=== PATIENT | male | born 1945 | race Caucasian/White ===

== ENCOUNTER → 2016-08-13 | Day surgery (SDC) | payer MEDICARE ==
[~2016-08-13] VITALS: Ht 182.9 cm; Wt 120.2 kg
[~2016-08-13] MED LIST: ACETAMINOPHEN 325 MG TAB PO PRN; ACETYLCHOLINE OPHTH SOLN 1% 2ML As Ordered ONE; AcetaZOLAMIDE 500 MG ER CAP PO ONE; BALANCED SALT IRRIGATION SOLUTION 500ML BAG (FOR OR EYE MACHINE) As Ordered ONE; CEFUROXIME 1MG/0.1ML INTRACAMERAL INJ As Ordered ONE; CYCLOPENTOLATE 2% OPHTH SOLN OD ONE; D5W/0.2% SODIUM CHLORIDE 250 ML IV ONE; FINA5TAB2 PO; GLIP5TAB15 PO; GLUCTAB PO; HEALON DUET (HEALON 10MG/ML 0.55ML & HEALON ENDOCOAT 30MG/ML 0.85ML) As Ordered ONE; HumaLOG INSULIN (NovoLOG) PER UNIT As Ordered ONE; HumaLOG INSULIN (NovoLOG) PER UNIT SC ONE; KETOROLAC 0.5% OPHTH SOLN OD ONE; LIDOCAINE 1% SDV 5 ML VIAL As Ordered ONE; LIDOCAINE 4% INJ 5 ML AMP OU ONE; LOSA50TA20 PO; MAGN400T5 PO; MIDAZOLAM INJ 2 MG/2 ML VIAL (J2250) As Ordered ONE; MYSO50TA5 PO; OFLOXACIN 0.3 % (OCUFLOX) OPTH SOL 5ML OD ONE; PHENYLEPHRINE 2.5% OPHTH SOL 2ML OD ONE; PLAV75TA38 PO; POVIDONE-IODINE 5% OPHTH PREP SOL 30ML As Ordered ONE; PROPARACAINE 0.5% OPHTH SOL 15ML OD PRN; TRIMETHOBENZAMIDE 300 MG CAP PO PRN; TROPICAMIDE 1% OPHTH SOLN 2 ML OD ONE; VICT18IN SC; fentaNYL 100 MCG/2 ML INJECTION (J3010) As Ordered ONE
[2016-08-13 10:15] VITALS: BP 142/84
--- NOTE | 2016-08-14 11:20 | RO ---
DATE OF PROCEDURE: 08/13/2016 PREPROCEDURE DIAGNOSIS: Age-related nuclear cataract, right eye. POSTPROCEDURE DIAGNOSIS: Age-related nuclear cataract, right eye. PROCEDURE: Phacoemulsification and posterior chamber intraocular lens implantation, right eye. Lens used is a Hoya model 250, 24.5 Diopter. SURGEON: Luz Saul MD SKILLED NURSING CASE MANAGER: ANESTHESIA: Topical with sedation. DESCRIPTION OF PROCEDURE: The patient was prepped and draped in the usual fashion. A lid speculum was placed between the lids. The eye was fixated. A stab incision was made to the anterior chamber, and 1% non-preserved Lidocaine was instilled. Then, viscoelastic was instilled. The eye was re-fixated. A 2.75 mm sapphire keratome was used to make a clear corneal temporal limbal incision. Capsulorrhexis was begun with a 30-gauge bent needle and then carried out in a circular fashion with capsulorrhexis forceps. The lens was hydrodissected, and then the phacoemulsification unit was used to make a groove in the nucleus and two meridians. The nucleus was then cracked into four quadrants. Each quadrant was removed with the phacoemulsification unit. Any remaining cortex was removed with the I A unit. Capsular bag was refilled with viscoelastic. A posterior chamber intraocular lens was placed in the capsular bag without difficulty. Any remaining viscoelastic was removed with the I A unit. The wound was hydrated, and Miochol and cefuroxime were instilled into the anterior chamber. The patient tolerated the procedure well and went to the recovery room in stable condition.
== END | disposition home or self-care (01) ==
LOC: M SDC 07:47
PROVIDERS: ATTEND Ophthalmology
DX: H25.11 Age-related nuclear cataract, right eye (principal); E11.42 Type 2 diabetes mellitus with diabetic polyneuropathy; I10 Essential (primary) hypertension; E88.81 Metabolic syndrome and other insulin resistance; E78.00 Pure hypercholesterolemia, unspecified; R06.83 Snoring; N40.0 Benign prostatic hyperplasia without lower urinary tract symptoms; Z79.899 Other long term (current) drug therapy; Z79.84 Long term (current) use of oral hypoglycemic drugs; Z79.02 Long term (current) use of antithrombotics/antiplatelets
CPT/HCPCS: 66984; J2250; J3010; V2632

== ENCOUNTER → 2016-08-20 | Day surgery (SDC) | payer MEDICARE ==
[~2016-08-20] VITALS: Ht 182.9 cm; Wt 120.2 kg
[~2016-08-20] MED LIST changes: +ACETYLCHOLINE OPHTH SOLN 1% 2ML (MIOCHOL-E) As Ordered ONE; -ACETYLCHOLINE OPHTH SOLN 1% 2ML As Ordered ONE; +BALANCED SALT IRRIGATION SOLUTION 500ML BAG (FOR OR EYE MACHINE) XX ONE; +CYCLOPENTOLATE 2% OPHTH SOLN 2ML BTL OD ONE; -CYCLOPENTOLATE 2% OPHTH SOLN OD ONE; +D5W/0.2% SODIUM CHLORIDE 1,000 ML IV SCH; -D5W/0.2% SODIUM CHLORIDE 250 ML IV ONE; -HumaLOG INSULIN (NovoLOG) PER UNIT As Ordered ONE; -HumaLOG INSULIN (NovoLOG) PER UNIT SC ONE; -KETOROLAC 0.5% OPHTH SOLN OD ONE; +KETOROLAC 0.5% OPHTH SOLN OS ONE; -OFLOXACIN 0.3 % (OCUFLOX) OPTH SOL 5ML OD ONE; +OFLOXACIN 0.3 % (OCUFLOX) OPTH SOL 5ML OS ONE; -PHENYLEPHRINE 2.5% OPHTH SOL 2ML OD ONE; +PHENYLEPHRINE 2.5% OPHTH SOL 2ML OS ONE; -PROPARACAINE 0.5% OPHTH SOL 15ML OD PRN; +PROPARACAINE 0.5% OPHTH SOL 15ML OS PRN; -TROPICAMIDE 1% OPHTH SOLN 2 ML OD ONE; +TROPICAMIDE 1% OPHTH SOLN 2ML OS ONE
--- NOTE | 2016-08-20 08:40 | RO ---
DATE OF PROCEDURE: 08/20/2016 PREPROCEDURE DIAGNOSIS: Age related nuclear cataract left eye. POSTPROCEDURE DIAGNOSIS: Age related nuclear cataract left eye. PROCEDURE: Phacoemulsification and posterior chamber intraocular lens implantation. The lens used was Hoya model 250, 22.0 diopter. SURGEON: Luz Saul MD PANTRY GOODS WORKER: ANESTHESIA: Topical with sedation. DESCRIPTION OF PROCEDURE: The patient was prepped and draped in the usual fashion. A lid speculum was placed between the lids. The eye was fixated. A stab incision was made to the anterior chamber, and 1% non-preserved lidocaine was instilled. Then, viscoelastic was instilled. The eye was re-fixated. A 2.75 mm sapphire keratome was used to make a clear corneal temporal limbal incision. Capsulorrhexis was begun with a 30-gauge bent needle and then carried out in a circular fashion with capsulorrhexis forceps. The lens was hydrodissected, and then the phacoemulsification unit was used to make a groove in the nucleus in two meridians. The nucleus was then cracked into four quadrants. Each quadrant was removed with the phacoemulsification unit. Any remaining cortex was removed with the irrigation and aspiration (I and A) unit. Capsular bag was refilled with viscoelastic. A posterior chamber intraocular lens was placed in the capsular bag without difficulty. Any remaining viscoelastic was removed with the I and A unit. The wound was hydrated, and Miochol and cefuroxime were instilled into the anterior chamber. The patient tolerated the procedure well and went to the recovery room in stable condition.
[2016-08-20 09:00] VITALS: BP 135/70
== END | disposition home or self-care (01) ==
LOC: M SDC 06:24
PROVIDERS: ATTEND Ophthalmology
DX: H25.12 Age-related nuclear cataract, left eye (principal); I10 Essential (primary) hypertension; E11.9 Type 2 diabetes mellitus without complications; E78.00 Pure hypercholesterolemia, unspecified; E88.81 Metabolic syndrome and other insulin resistance; G62.9 Polyneuropathy, unspecified; N40.0 Benign prostatic hyperplasia without lower urinary tract symptoms; R06.83 Snoring; G40.909 Epilepsy, unspecified, not intractable, without status epilepticus; Z88.8 Allergy status to other drugs, medicaments and biological substances; Z79.899 Other long term (current) drug therapy; Z79.02 Long term (current) use of antithrombotics/antiplatelets; Z79.84 Long term (current) use of oral hypoglycemic drugs
CPT/HCPCS: 66984; J2250; J3010; V2632

== ENCOUNTER → 2017-05-05 | Outpatient (REF) | payer MEDICARE ==
[2017-05-05 13:59] LABS: FOLATE 9.1 NG/ML; VITAMIN B12 LEVEL 377 PG/ML
== END ==
LOC: M LAB REF 12:11
DX: R20.2 Paresthesia of skin (principal); R26.89 Other abnormalities of gait and mobility
CPT/HCPCS: 82746

== ENCOUNTER 2018-11-15 07:20 | Day surgery (SDC) | payer MEDICARE ==
[~2018-11-15] VITALS: Ht 182.9 cm; Wt 111.9 kg
[~2018-11-15 07:20] MED LIST changes: -ACETAMINOPHEN 325 MG TAB PO PRN; -ACETYLCHOLINE OPHTH SOLN 1% 2ML (MIOCHOL-E) As Ordered ONE; +ATOR1TAB21 PO; -AcetaZOLAMIDE 500 MG ER CAP PO ONE; -BALANCED SALT IRRIGATION SOLUTION 500ML BAG (FOR OR EYE MACHINE) As Ordered ONE; -BALANCED SALT IRRIGATION SOLUTION 500ML BAG (FOR OR EYE MACHINE) XX ONE; -CEFUROXIME 1MG/0.1ML INTRACAMERAL INJ As Ordered ONE; -CYCLOPENTOLATE 2% OPHTH SOLN 2ML BTL OD ONE; -D5W/0.2% SODIUM CHLORIDE 1,000 ML IV SCH; +FARX1TAB3 PO; -GLIP5TAB15 PO; +GLIP5TAB20 PO; -HEALON DUET (HEALON 10MG/ML 0.55ML & HEALON ENDOCOAT 30MG/ML 0.85ML) As Ordered ONE; -KETOROLAC 0.5% OPHTH SOLN OS ONE; -LIDOCAINE 1% SDV 5 ML VIAL As Ordered ONE; -LIDOCAINE 4% INJ 5 ML AMP OU ONE; +LISI10TA4 PO; -LOSA50TA20 PO; +LOSA50TA88 PO; +MAGN400T PO; +METF500T13 PO; -MIDAZOLAM INJ 2 MG/2 ML VIAL (J2250) As Ordered ONE; +NS 1,000 ML IV ONE; -OFLOXACIN 0.3 % (OCUFLOX) OPTH SOL 5ML OS ONE; -PHENYLEPHRINE 2.5% OPHTH SOL 2ML OS ONE; +PLAV1TAB2 PO; -PLAV75TA38 PO; -POVIDONE-IODINE 5% OPHTH PREP SOL 30ML As Ordered ONE; +PROP20TA72 PO; -PROPARACAINE 0.5% OPHTH SOL 15ML OS PRN; +TOUJ1.2I SC; -TRIMETHOBENZAMIDE 300 MG CAP PO PRN; -TROPICAMIDE 1% OPHTH SOLN 2ML OS ONE; -fentaNYL 100 MCG/2 ML INJECTION (J3010) As Ordered ONE
[2018-11-15] MEDS ORDERED: PROPOFOL 200 MG/20 ML VIAL As Ordered ONE (09:13)
[2018-11-15] MEDS ORDERED: LIDOCAINE 2% INJ 100 MG/5 ML SDV (FOR ANES.) As Ordered ONE (09:13)
--- NOTE | 2018-11-15 09:16 | ROOR ---
Patient Name: Serge Cox Procedure Date: 11/15/2018 8:44 AM Date of : 1945 Age: 73 Room: [facility] Gender: Male Note Status: Finalized Procedure: Total Colonoscopy to Cecum + Cold Snare Polypectomy + Hemoclip Indications: Screening for colorectal malignant neoplasm, Last colonoscopy 10 years ago Providers: Geoffrey Baker MD Referring MD: OLLIE ALFARO JR, MD Requesting Provider: Medicines: Monitored Anesthesia Care Complications: No immediate complications. Procedure: Pre-Anesthesia Assessment: - The heart rate, respiratory rate, oxygen saturations, blood pressure, adequacy of pulmonary ventilation, and response to care were monitored throughout the procedure. The Colonoscope was introduced through the anus and advanced to the cecum, identified by appendiceal orifice and ileocecal valve. The colonoscopy was performed without difficulty. The patient tolerated the procedure well. The quality of the bowel preparation was excellent. Findings: The perianal and digital rectal examinations were normal. Non-bleeding internal hemorrhoids were found during retroflexion. Two sessile polyps were found in the rectum. The polyps were small in size. These polyps were removed with a cold snare. Resection and retrieval were complete. A small polyp was found in the transverse colon. The polyp was sessile. The polyp was removed with a cold snare. Resection and retrieval were complete. Two sessile polyps were found in the ascending colon. The polyps were small in size. These polyps were removed with a cold snare. Resection and retrieval were complete. To prevent bleeding after the polypectomy, one hemostatic clip was successfully placed (MR conditional). There was no bleeding at the end of the procedure. The exam was otherwise without abnormality on direct and retroflexion views. Impression: - Non-bleeding internal hemorrhoids. - Two small polyps in the rectum, removed with a cold snare. Resected and retrieved. - One small polyp in the transverse colon, removed with a cold snare. Resected and retrieved. - Two small polyps in the ascending colon, removed with a cold snare. Resected and retrieved. Clip (MR conditional) was placed. - The examination was otherwise normal on direct and retroflexion views. - The exam was otherwise normal to the cecum. Recommendation: - Patient has a contact number available for emergencies. The signs and symptoms of potential delayed complications were discussed with the patient. Return to normal activities tomorrow. Written discharge instructions were provided to the patient. - High fiber diet. - Discharge patient to home. - Continue present medications. - Await pathology results. - Telephone GI clinic for pathology results in 1 week. - Return to referring physician. - Repeat colonoscopy for surveillance based on pathology results. - The findings and recommendations were discussed with the patient's family. Geoffrey Baker MD Geoffrey Baker MD 11/15/2018 9:16:21 AM Electronically signed by Geoffrey Baker MD Number of Addenda: 0 Note Initiated On: 11/15/2018 8:44 AM Estimated Blood Loss: Estimated blood loss: none.
[2018-11-15 09:39] VITALS: BP 120/78
== END 2018-11-15 09:52 | disposition home or self-care (01) ==
LOC: M OPP 07:20
PROVIDERS: ATTEND Internal Medicine Gastroenterology
DX: Z12.11 Encounter for screening for malignant neoplasm of colon (principal); K64.8 Other hemorrhoids; K62.1 Rectal polyp; D12.2 Benign neoplasm of ascending colon; D12.3 Benign neoplasm of transverse colon; Z79.4 Long term (current) use of insulin; Z79.899 Other long term (current) drug therapy; Z87.891 Personal history of nicotine dependence

== ENCOUNTER 2023-04-23 09:30 | Inpatient (IN) | payer MEDICARE ==
[~2023-04-23] VITALS: Ht 182.9 cm; Wt 95.8 kg
[~2023-04-23 09:30] MED LIST changes: +CLOP75TA99 PO; +LISI10TA22 PO; -LISI10TA4 PO; +LOSA50TA28 PO; -LOSA50TA88 PO; -MAGN400T PO; +MAGN400T33 PO; -NS 1,000 ML IV ONE; -PLAV1TAB2 PO
[2023-04-23] MEDS ORDERED: CYCLOBENZAPRINE 5MG TABLET PO ONE (09:50)
[2023-04-23] MEDS ORDERED: MORPHINE 2 MG/ML 1ML VIAL IV PRN (09:50)
[2023-04-23] MEDS ORDERED: diphenhydrAMINE 50MG/ML VIAL IV STA (10:38)
[2023-04-23] MEDS ORDERED: methylPREDNISolone 125MG 2ML VIAL IV ONE (10:40)
[2023-04-23] MEDS ORDERED: FAMOTIDINE 20MG/2ML VIAL IVP ONE (10:45)
[2023-04-23 10:46] LABS: BASO # 0.1 10^3/uL (0.0-0.2); BASO % 0.4 % (0.0-1.0); EOS % 0.2 % (0.0-3.0); HEMATOCRIT 43.3 % (42.0-52.0); HEMOGLOBIN 13.6 g/dl (13.5-17.5); LYMPH # 2.1 10^3/uL (1.5-5.0); LYMPH % 18.1 % (24.0-44.0); MEAN CORPUSCULAR HEMOGLOBIN 31.3 pg (27.0-33.0); MEAN CORPUSCULAR HGB CONC 31.4 g/dl (32.0-36.5); MEAN CORPUSCULAR VOLUME 99.5 fl (80.0-96.0); MONO # 1.2 10^3/uL (0.0-0.8); MONO % 10.2 % (2.0-8.0); NEUTROPHILS % 68.5 % (36.0-66.0); PLATELET COUNT, AUTOMATED 379 10^3/uL (150-450); RED BLOOD COUNT 4.35 10^6/uL (4.30-6.10); WHITE BLOOD COUNT 11.7 10^3/uL (4.0-10.0)
[2023-04-23 10:55] LABS: INR 1.18; PROTHROMBIN TIME 14.7 SECONDS (12.5-14.5)
[2023-04-23 10:56] LABS: PARTIAL THROMBOPLASTIN TIME 32.9 SECONDS (24.8-34.2)
[2023-04-23 10:57] LABS: ERYTHROCYTE SEDIMENTATION RATE > 130 mm/hr (0-20)
[2023-04-23 11:03] LABS: LIPASE 22 U/L (12-53)
[2023-04-23 11:05] LABS: ALKALINE PHOSPHATASE 87 U/L (46-116); ALT/SGPT < 9 U/L (7.0-40); AST/SGOT < 8 U/L (<34); BILIRUBIN,DIRECT 0.3 MG/DL (<0.4); BILIRUBIN,TOTAL 0.8 MG/DL (0.3-1.2); BLOOD UREA NITROGEN 14 MG/DL (9-23); CALCIUM LEVEL 9.3 MG/DL (8.3-10.6); CARBON DIOXIDE LEVEL 18 MMOL/L (20-31); CHLORIDE LEVEL 104 MMOL/L (98-107); CREATININE FOR GFR 0.68 MG/DL (0.70-1.30); GLOMERULAR FILTRATION RATE > 60.0 (>42); GLUCOSE, FASTING 225 MG/DL (74-106); POTASSIUM SERUM 4.4 MMOL/L (3.5-5.1); SODIUM LEVEL 138 MMOL/L (136-145); TOTAL PROTEIN 7.1 G/DL (5.7-8.2)
[2023-04-23 11:07] LABS: PROLACTIN 10.78 NG/ML (2.1-17.7)
[2023-04-23 11:17] LABS: RSV AMPLIFICATION NEGATIVE (NEGATIVE)
[2023-04-23] MEDS ORDERED: MORPHINE 4 MG/ML 1ML VIAL IV ONE (12:00)
[2023-04-23] MEDS ORDERED: KETOROLAC 30 MG/ML 1ML VIAL IV ONE (12:45)
[2023-04-23] MEDS ORDERED: ACETAMINOPHEN 500 MG TAB PO ONE (12:45)
[2023-04-23] MEDS ORDERED: PROHANCE 279.3MG/ML 5ML VIAL As Ordered ONE (14:03)
[2023-04-23] MEDS ORDERED: PROHANCE 279.3MG/ML 15ML VIAL As Ordered ONE (14:04)
[2023-04-23] MEDS ORDERED: JARD1TAB3 PO (14:48)
[2023-04-23] MEDS ORDERED: PRIM50TA6 PO (14:48)
[2023-04-23] MEDS ORDERED: METF-838 PO (14:48)
[2023-04-23] MEDS ORDERED: TRAM50TA2 PO (14:48)
[2023-04-23] MEDS ORDERED: HOME MED LIST COMPLETE! XX SCH (14:50)
[2023-04-23 15:57] LABS: PROCALCITONIN 0.11 ng/ml
[2023-04-23] MEDS ORDERED: NS 1,000 ML IV ONE (16:25)
[2023-04-23] MEDS ORDERED: GLUCOSE 4GM CHEW TABLET PO PRN (17:50)
[2023-04-23] MEDS ORDERED: GLUCAGON INJ 1MG VIAL SC PRN (17:50)
[2023-04-23] MEDS ORDERED: DEXTROSE 50% 50ML SYRINGE IV PRN (17:50)
[2023-04-23] MEDS: carisoprodoL 350 MG TAB PO SCH (19:55)
[2023-04-23] MEDS: DOCUSATE SODIUM 100MG CAPSULE PO SCH (19:55)
[2023-04-23] MEDS: INSULIN LISPRO (NovoLOG) PER UNIT SC SCH (20:01)
[2023-04-23] MEDS: ACETAMINOPHEN 500 MG TAB PO SCH (22:00)
[2023-04-24 06:28] LABS: BASO % 0.2 % (0.0-1.0); HEMATOCRIT 40.5 % (42.0-52.0); HEMOGLOBIN 12.7 g/dl (13.5-17.5); LYMPH # 1.6 10^3/uL (1.5-5.0); LYMPH % 11.7 % (24.0-44.0); MEAN CORPUSCULAR HEMOGLOBIN 31.8 pg (27.0-33.0); MEAN CORPUSCULAR HGB CONC 31.4 g/dl (32.0-36.5); MEAN CORPUSCULAR VOLUME 101.5 fl (80.0-96.0); MONO # 0.6 10^3/uL (0.0-0.8); MONO % 4.6 % (2.0-8.0); NEUTROPHILS # 10.5 10^3/uL (1.5-8.5); NEUTROPHILS % 79.2 % (36.0-66.0); PLATELET COUNT, AUTOMATED 363 10^3/uL (150-450); RED BLOOD COUNT 3.99 10^6/uL (4.30-6.10); WHITE BLOOD COUNT 13.3 10^3/uL (4.0-10.0)
[2023-04-24 06:57] LABS: BLOOD UREA NITROGEN 28 MG/DL (9-23); CALCIUM LEVEL 9.3 MG/DL (8.3-10.6); CARBON DIOXIDE LEVEL 15 MMOL/L (20-31); CHLORIDE LEVEL 108 MMOL/L (98-107); GLOMERULAR FILTRATION RATE > 60.0 (>42); GLUCOSE, FASTING 222 MG/DL (74-106); POTASSIUM SERUM 4.6 MMOL/L (3.5-5.1); SODIUM LEVEL 142 MMOL/L (136-145)
[2023-04-24] MEDS: INSULIN LISPRO (NovoLOG) PER UNIT SC SCH ×5 (07:30→22:59)
[2023-04-24] MEDS: DOCUSATE SODIUM 100MG CAPSULE PO SCH ×2 (08:10→20:31)
[2023-04-24] MEDS: ACETAMINOPHEN 500 MG TAB PO SCH ×3 (08:15→22:59)
[2023-04-24 09:00] VITALS: BP 146/71; O2SAT 98
[2023-04-24] MEDS ORDERED: LEVEMIR (INSULIN DETEMIR) 1 UNITS/0.01ML SC SCH (09:00)
[2023-04-24 09:30] VITALS: TEMP 96
[2023-04-24] MEDS ORDERED: fentaNYL 100 MCG/2 ML INJECTION As Ordered ONE (12:50)
[2023-04-24] MEDS ORDERED: LIDOCAINE 1% MDV 20ML VIAL As Ordered ONE (13:02)
[2023-04-24 14:30] VITALS: BP_SYST 152; BP_SYST 162; BP_DIAS 122; BP_DIAS 82; TEMP 97.9; O2SAT 98
[2023-04-24] MEDS: LEVEMIR (INSULIN DETEMIR) 1 UNITS/0.01ML SC SCH (14:52)
[2023-04-24] MEDS: carisoprodoL 350 MG TAB PO SCH (20:31)
[2023-04-24] MEDS: KETOROLAC 30 MG/ML 1ML VIAL IV PRN (20:32)
[2023-04-24 21:15] VITALS: BP 130/61; TEMP 97.9; O2SAT 99
[2023-04-25] MEDS: ACETAMINOPHEN 500 MG TAB PO SCH ×3 (06:07→21:59)
[2023-04-25 06:23] LABS: BASO % 0.3 % (0.0-1.0); EOS % 0.3 % (0.0-3.0); HEMATOCRIT 36.6 % (42.0-52.0); HEMOGLOBIN 11.9 g/dl (13.5-17.5); LYMPH # 1.3 10^3/uL (1.5-5.0); LYMPH % 11.1 % (24.0-44.0); MEAN CORPUSCULAR HGB CONC 32.5 g/dl (32.0-36.5); MEAN CORPUSCULAR VOLUME 98.4 fl (80.0-96.0); MONO % 8.6 % (2.0-8.0); NEUTROPHILS # 8.7 10^3/uL (1.5-8.5); NEUTROPHILS % 77.8 % (36.0-66.0); PLATELET COUNT, AUTOMATED 300 10^3/uL (150-450); RED BLOOD COUNT 3.72 10^6/uL (4.30-6.10); WHITE BLOOD COUNT 11.2 10^3/uL (4.0-10.0)
[2023-04-25 06:45] VITALS: BP 135/69; TEMP 97.5; O2SAT 96
[2023-04-25 06:49] LABS: BLOOD UREA NITROGEN 36 MG/DL (9-23); CALCIUM LEVEL 9.3 MG/DL (8.3-10.6); CARBON DIOXIDE LEVEL 24 MMOL/L (20-31); CHLORIDE LEVEL 109 MMOL/L (98-107); CREATININE FOR GFR 0.77 MG/DL (0.70-1.30); GLOMERULAR FILTRATION RATE > 60.0 (>42); GLUCOSE, FASTING 210 MG/DL (74-106); POTASSIUM SERUM 3.8 MMOL/L (3.5-5.1); SODIUM LEVEL 142 MMOL/L (136-145)
[2023-04-25] MEDS: DOCUSATE SODIUM 100MG CAPSULE PO SCH ×2 (08:17→20:38)
[2023-04-25] MEDS: LEVEMIR (INSULIN DETEMIR) 1 UNITS/0.01ML SC SCH ×2 (08:18→23:00)
[2023-04-25] MEDS: INSULIN LISPRO (NovoLOG) PER UNIT SC SCH ×4 (08:18→22:00)
[2023-04-25] MEDS: KETOROLAC 30 MG/ML 1ML VIAL IV PRN ×2 (08:25→17:53)
[2023-04-25 14:00] VITALS: BP 134/69; TEMP 97.7; O2SAT 98
[2023-04-25 20:28] VITALS: BP 156/80; TEMP 97.9; O2SAT 96
[2023-04-25] MEDS: carisoprodoL 350 MG TAB PO SCH (21:59)
[2023-04-26] MEDS: ACETAMINOPHEN 500 MG TAB PO SCH ×4 (06:08→20:40)
[2023-04-26 06:39] LABS: BASO % 0.3 % (0.0-1.0); EOS % 0.2 % (0.0-3.0); HEMATOCRIT 40.6 % (42.0-52.0); HEMOGLOBIN 13.2 g/dl (13.5-17.5); LYMPH # 0.7 10^3/uL (1.5-5.0); LYMPH % 6.9 % (24.0-44.0); MEAN CORPUSCULAR HGB CONC 32.5 g/dl (32.0-36.5); MEAN CORPUSCULAR VOLUME 98.3 fl (80.0-96.0); MONO # 0.8 10^3/uL (0.0-0.8); MONO % 7.8 % (2.0-8.0); NEUTROPHILS # 8.3 10^3/uL (1.5-8.5); PLATELET COUNT, AUTOMATED 263 10^3/uL (150-450); RED BLOOD COUNT 4.13 10^6/uL (4.30-6.10)
[2023-04-26 06:43] VITALS: BP 198/92; TEMP 98.6; O2SAT 93
[2023-04-26 06:54] LABS: BLOOD UREA NITROGEN 28 MG/DL (9-23); CALCIUM LEVEL 9.2 MG/DL (8.3-10.6); CARBON DIOXIDE LEVEL 22 MMOL/L (20-31); CHLORIDE LEVEL 111 MMOL/L (98-107); CREATININE FOR GFR 0.73 MG/DL (0.70-1.30); GLOMERULAR FILTRATION RATE > 60.0 (>42); GLUCOSE, FASTING 235 MG/DL (74-106); SODIUM LEVEL 144 MMOL/L (136-145)
[2023-04-26] MEDS: INSULIN LISPRO (NovoLOG) PER UNIT SC SCH ×4 (07:30→20:38)
[2023-04-26] MEDS: KETOROLAC 30 MG/ML 1ML VIAL IV PRN (08:18)
[2023-04-26] MEDS: LEVEMIR (INSULIN DETEMIR) 1 UNITS/0.01ML SC SCH ×2 (08:49→20:38)
[2023-04-26] MEDS: CYCLOBENZAPRINE 10MG TABLET PO PRN (08:50)
[2023-04-26] MEDS: DOCUSATE SODIUM 100MG CAPSULE PO SCH ×2 (09:00→20:39)
[2023-04-26] MEDS: SENOKOT S TAB PO SCH ×2 (09:00→20:39)
[2023-04-26 09:17] LABS: HEMOGLOBIN A1c 9.1 % (4.0-6.0)
[2023-04-26] MEDS ORDERED: methylPREDNISolone 40MG 1ML VIAL IV ONE (10:00)
[2023-04-26] MEDS ORDERED: MIRALAX *UNIT DOSE* 17GM PACKET PO PRN (10:50)
[2023-04-26 13:26] VITALS: BP 135/77; TEMP 98.1; O2SAT 96
[2023-04-26] MEDS: KETOROLAC 30 MG/ML 1ML VIAL IV SCH ×2 (14:28→20:39)
[2023-04-26 20:23] VITALS: BP 149/73; TEMP 97.5; O2SAT 98
[2023-04-27] MEDS: KETOROLAC 30 MG/ML 1ML VIAL IV SCH ×4 (02:13→21:06)
[2023-04-27 05:47] VITALS: BP 149/74; TEMP 97.5; O2SAT 98
[2023-04-27 06:24] LABS: BASO % 0.2 % (0.0-1.0); EOS % 0.2 % (0.0-3.0); HEMATOCRIT 35.6 % (42.0-52.0); HEMOGLOBIN 11.5 g/dl (13.5-17.5); LYMPH # 1.1 10^3/uL (1.5-5.0); LYMPH % 8.8 % (24.0-44.0); MEAN CORPUSCULAR HEMOGLOBIN 31.9 pg (27.0-33.0); MEAN CORPUSCULAR HGB CONC 32.3 g/dl (32.0-36.5); MEAN CORPUSCULAR VOLUME 98.6 fl (80.0-96.0); MONO % 8.1 % (2.0-8.0); NEUTROPHILS % 80.7 % (36.0-66.0); PLATELET COUNT, AUTOMATED 249 10^3/uL (150-450); RED BLOOD COUNT 3.61 10^6/uL (4.30-6.10); WHITE BLOOD COUNT 12.4 10^3/uL (4.0-10.0)
[2023-04-27] MEDS: ACETAMINOPHEN 500 MG TAB PO SCH ×3 (06:54→21:05)
[2023-04-27 07:00] LABS: BLOOD UREA NITROGEN 30 MG/DL (9-23); CALCIUM LEVEL 9.5 MG/DL (8.3-10.6); CARBON DIOXIDE LEVEL 26 MMOL/L (20-31); CHLORIDE LEVEL 109 MMOL/L (98-107); CREATININE FOR GFR 0.67 MG/DL (0.70-1.30); GLOMERULAR FILTRATION RATE > 60.0 (>42); GLUCOSE, FASTING 186 MG/DL (74-106); POTASSIUM SERUM 3.8 MMOL/L (3.5-5.1); SODIUM LEVEL 143 MMOL/L (136-145)
[2023-04-27] MEDS: CYCLOBENZAPRINE 10MG TABLET PO PRN (09:44)
[2023-04-27] MEDS: SENOKOT S TAB PO SCH ×2 (09:44→21:00)
[2023-04-27] MEDS: LEVEMIR (INSULIN DETEMIR) 1 UNITS/0.01ML SC SCH ×2 (09:45→21:07)
[2023-04-27] MEDS: INSULIN LISPRO (NovoLOG) PER UNIT SC SCH ×6 (09:46→21:07)
[2023-04-27] MEDS ORDERED: methylPREDNISolone 40MG 1ML VIAL IV ONE (12:40)
[2023-04-27] MEDS: DOXYCYCLINE HYCLATE 100MG TABLET PO SCH ×2 (13:16→21:07)
[2023-04-27 14:00] VITALS: BP 140/72; TEMP 97.7; O2SAT 98
[2023-04-27 20:21] VITALS: BP 142/72; TEMP 98; O2SAT 99
[2023-04-27] MEDS: DOCUSATE SODIUM 100MG CAPSULE PO SCH (21:00)
[2023-04-28] MEDS: KETOROLAC 30 MG/ML 1ML VIAL IV SCH ×3 (02:18→13:15)
[2023-04-28] MEDS: ACETAMINOPHEN 500 MG TAB PO SCH ×2 (05:55→13:14)
[2023-04-28 06:23] LABS: BASO % 0.2 % (0.0-1.0); EOS % 0.2 % (0.0-3.0); HEMATOCRIT 37.3 % (42.0-52.0); HEMOGLOBIN 11.8 g/dl (13.5-17.5); LYMPH # 1.3 10^3/uL (1.5-5.0); LYMPH % 8.7 % (24.0-44.0); MEAN CORPUSCULAR HEMOGLOBIN 31.6 pg (27.0-33.0); MEAN CORPUSCULAR HGB CONC 31.6 g/dl (32.0-36.5); MONO # 1.1 10^3/uL (0.0-0.8); MONO % 7.4 % (2.0-8.0); NEUTROPHILS # 12.2 10^3/uL (1.5-8.5); PLATELET COUNT, AUTOMATED 237 10^3/uL (150-450); RED BLOOD COUNT 3.73 10^6/uL (4.30-6.10); WHITE BLOOD COUNT 15.1 10^3/uL (4.0-10.0)
[2023-04-28 06:48] LABS: BLOOD UREA NITROGEN 28 MG/DL (9-23); CALCIUM LEVEL 9.1 MG/DL (8.3-10.6); CARBON DIOXIDE LEVEL 30 MMOL/L (20-31); CHLORIDE LEVEL 107 MMOL/L (98-107); CREATININE FOR GFR 0.72 MG/DL (0.70-1.30); GLOMERULAR FILTRATION RATE > 60.0 (>42); GLUCOSE, FASTING 125 MG/DL (74-106); POTASSIUM SERUM 3.8 MMOL/L (3.5-5.1); SODIUM LEVEL 142 MMOL/L (136-145)
[2023-04-28 06:51] VITALS: BP 187/88; TEMP 98.6; O2SAT 96
[2023-04-28 07:51] VITALS: BP 168/86
[2023-04-28] MEDS: INSULIN LISPRO (NovoLOG) PER UNIT SC SCH ×4 (08:25→12:09)
[2023-04-28] MEDS: SENOKOT S TAB PO SCH (08:26)
[2023-04-28] MEDS: DOXYCYCLINE HYCLATE 100MG TABLET PO SCH (08:26)
[2023-04-28] MEDS: LEVEMIR (INSULIN DETEMIR) 1 UNITS/0.01ML SC SCH (08:26)
[2023-04-28] MEDS ORDERED: ANALGESIC BALM CRM 3OZ TOP SCH (09:00)
[2023-04-28] MEDS ORDERED: NAPR-885 PO (13:17)
[2023-04-28] MEDS ORDERED: TRAM50TA2 PO (13:17)
[2023-04-28] MEDS ORDERED: MEDR4PAK PO (13:17)
[2023-04-28] MEDS ORDERED: CYCL10TA20 PO (13:22)
[2023-04-28] MEDS ORDERED: DOXY100T PO ×2 (13:22→13:29)
[2023-04-28] MEDS ORDERED: PERC5TAB12 PO (13:22)
[2023-04-28] MEDS ORDERED: SENN-52 PO (13:22)
[2023-04-28] MEDS ORDERED: GABA-282 PO (13:25)
[2023-04-28 14:15] VITALS: BP 154/82; TEMP 98.5; O2SAT 97
[2023-04-28] MEDS ORDERED: PERCOCET 5MG/325MG TAB PO SCH (16:00)
[2023-04-28 16:09] LABS: FREE KAPPA LIGHT CHAINS SERUM 36.5 mg/L (3.3-19.4); FREE LAMBDA LIGHT CHAINS SERUM 40.3 mg/L (5.7-26.3); KAPPA/LAMBDA RATIO SERUM 0.91 (0.26-1.65)
[2023-04-28] MEDS ORDERED: NAPROXEN 250 MG TAB PO SCH (21:00)
[2023-04-28] MEDS ORDERED: GABAPENTIN 300 MG CAP PO SCH (21:00)
[2023-04-29] MEDS ORDERED: GABA-282 PO (15:32)
[2023-04-29] MEDS ORDERED: NAPR-885 PO (15:34)
== END 2023-04-28 17:15 | disposition home health service (06) | DRG 465 ==
LOC: M ED 09:30 → M ED INP 17:49 → EEVIPCON 17:49 → M MS5PR 04-24 14:35
PROVIDERS: ADMIT Internal Medicine Nephrology; ATTEND Internal Medicine Nephrology
PROC: 0QB03ZX Excision of Lumbar Vertebra, Percutaneous Approach, Diagnostic (ICD-10-PCS; 2023-04-24)
PROC: 0JBQ0ZZ Excision of Right Foot Subcutaneous Tissue and Fascia, Open Approach (ICD-10-PCS; principal; 2023-04-25)
DX: M51.17 Intervertebral disc disorders with radiculopathy, lumbosacral region (principal); E11.621 Type 2 diabetes mellitus with foot ulcer; L97.519 Non-pressure chronic ulcer of other part of right foot with unspecified severity; I10 Essential (primary) hypertension; E78.5 Hyperlipidemia, unspecified; E11.42 Type 2 diabetes mellitus with diabetic polyneuropathy; M25.512 Pain in left shoulder; M77.31 Calcaneal spur, right foot; M54.2 Cervicalgia; E11.65 Type 2 diabetes mellitus with hyperglycemia; T38.0X5A Adverse effect of glucocorticoids and synthetic analogues, initial encounter; G89.29 Other chronic pain; N40.0 Benign prostatic hyperplasia without lower urinary tract symptoms; B95.62 Methicillin resistant Staphylococcus aureus infection as the cause of diseases classified elsewhere; E66.9 Obesity, unspecified; Z98.41 Cataract extraction status, right eye; Z98.42 Cataract extraction status, left eye; Z86.010 Personal history of colon polyps; Z79.4 Long term (current) use of insulin; Z79.899 Other long term (current) drug therapy; Z88.5 Allergy status to narcotic agent; Z68.28 Body mass index [BMI] 28.0-28.9, adult

== ENCOUNTER 2023-04-29 11:18 | Observation (INO) | payer MEDICARE ==
[~2023-04-29] VITALS: Ht 182.9 cm; Wt 94.9 kg
[~2023-04-29 11:18] MED LIST changes: +CYCL10TA20 PO; +DOXY100T PO; +GABA-282 PO; +JARD1TAB3 PO; +MEDR4PAK PO; +METF-838 PO; +NAPR-885 PO; +PERC5TAB12 PO; +PRIM50TA6 PO; +SENN-52 PO; +TRAM50TA2 PO
[2023-04-29 12:02] LABS: BASO % 0.3 % (0.0-1.0); EOS # 0.2 10^3/uL (0.0-0.5); EOS % 1.2 % (0.0-3.0); HEMATOCRIT 39.2 % (42.0-52.0); HEMOGLOBIN 12.4 g/dl (13.5-17.5); LYMPH # 1.8 10^3/uL (1.5-5.0); LYMPH % 12.8 % (24.0-44.0); MEAN CORPUSCULAR HEMOGLOBIN 31.6 pg (27.0-33.0); MEAN CORPUSCULAR HGB CONC 31.6 g/dl (32.0-36.5); MEAN CORPUSCULAR VOLUME 99.7 fl (80.0-96.0); MONO # 1.4 10^3/uL (0.0-0.8); MONO % 10.2 % (2.0-8.0); NEUTROPHILS # 9.9 10^3/uL (1.5-8.5); NEUTROPHILS % 71.8 % (36.0-66.0); PLATELET COUNT, AUTOMATED 194 10^3/uL (150-450); RED BLOOD COUNT 3.93 10^6/uL (4.30-6.10); WHITE BLOOD COUNT 13.8 10^3/uL (4.0-10.0)
[2023-04-29 12:16] LABS: INR 1.14; PROTHROMBIN TIME 14.3 SECONDS (12.5-14.5)
[2023-04-29 12:33] LABS: ALBUMIN 2.1 G/DL (3.2-5.2); ALKALINE PHOSPHATASE 71 U/L (46-116); ALT/SGPT < 9 U/L (7.0-40); AST/SGOT 16 U/L (<34); BILIRUBIN,DIRECT 0.2 MG/DL (<0.4); BILIRUBIN,TOTAL 0.6 MG/DL (0.3-1.2); BLOOD UREA NITROGEN 19 MG/DL (9-23); CARBON DIOXIDE LEVEL 28 MMOL/L (20-31); CHLORIDE LEVEL 105 MMOL/L (98-107); CK-MB VALUE MASS < 1.0 NG/ML (<3.6); CREATININE FOR GFR 0.64 MG/DL (0.70-1.30); GLOMERULAR FILTRATION RATE > 60.0 (>42); GLUCOSE, FASTING 146 MG/DL (74-106); POTASSIUM SERUM 3.7 MMOL/L (3.5-5.1); SODIUM LEVEL 135 MMOL/L (136-145); TOTAL PROTEIN 6.2 G/DL (5.7-8.2)
[2023-04-29 12:35] LABS: THYROID STIMULATING HORMONE 2.395 uIU/ML (0.55-4.78)
[2023-04-29 12:36] LABS: CPK CREATINE PHOSPHOKINASE 35 U/L (46-171); MB/CK RELATIVE INDEX 2.85 (< OR =4)
[2023-04-29 12:42] LABS: RSV AMPLIFICATION NEGATIVE (NEGATIVE)
[2023-04-29] MEDS ORDERED: NORCO, ANEXSIA 5/325MG TABLET (HYDROcodone/ACETAMINOPHEN) PO ONE (13:30)
[2023-04-29] MEDS ORDERED: MED REC IN PROGRESS XX SCH (15:00)
[2023-04-29 15:25] LABS: ERYTHROCYTE SEDIMENTATION RATE 95 mm/hr (0-20); RHEUMATOID FACTOR QUANT < 3.5 IU/ML (<14)
[2023-04-29] MEDS ORDERED: GABA-282 PO (15:32)
[2023-04-29] MEDS ORDERED: NAPR-885 PO (15:34)
[2023-04-29] MEDS ORDERED: HOME MED LIST COMPLETE! XX SCH (15:40)
[2023-04-29] MEDS ORDERED: CYCLOBENZAPRINE 10MG TABLET PO PRN (16:00)
[2023-04-29 16:15] VITALS: BP 138/80; TEMP 98.8; O2SAT 98
[2023-04-29] MEDS ORDERED: GLUCOSE 4GM CHEW TABLET PO PRN (16:55)
[2023-04-29] MEDS ORDERED: GLUCAGON INJ 1MG VIAL SC PRN (16:55)
[2023-04-29] MEDS ORDERED: DEXTROSE 50% 50ML SYRINGE IV PRN (16:55)
[2023-04-29] MEDS: INSULIN LISPRO (NovoLOG) PER UNIT SC SCH (17:30)
[2023-04-29] MEDS: PERCOCET 5MG/325MG TAB PO PRN ×2 (17:42→21:58)
[2023-04-29 20:27] VITALS: TEMP 97.9; O2SAT 96
[2023-04-29 20:52] VITALS: BP 179/99
[2023-04-29] MEDS ORDERED: LEVEMIR (INSULIN DETEMIR) 1 UNITS/0.01ML SC SCH (21:00)
[2023-04-29] MEDS ORDERED: INSULIN LISPRO (NovoLOG) PER UNIT SC SCH (21:00)
[2023-04-29] MEDS ORDERED: GABAPENTIN 300 MG CAP PO SCH (21:00)
[2023-04-29] MEDS ORDERED: PRIMIDONE 50MG TAB PO SCH (21:00)
[2023-04-29] MEDS: DOXYCYCLINE HYCLATE 100MG TABLET PO SCH (21:57)
[2023-04-29] MEDS: SENOKOT S TAB PO SCH (21:57)
[2023-04-30 00:50] VITALS: BP 170/93
[2023-04-30 01:33] VITALS: BP 148/70
[2023-04-30 05:40] VITALS: BP 158/88; TEMP 97.9; O2SAT 94
[2023-04-30 05:45] LABS: HEMATOCRIT 38.3 % (42.0-52.0); MEAN CORPUSCULAR HEMOGLOBIN 31.1 pg (27.0-33.0); MEAN CORPUSCULAR HGB CONC 31.3 g/dl (32.0-36.5); MEAN CORPUSCULAR VOLUME 99.2 fl (80.0-96.0); PLATELET COUNT, AUTOMATED 186 10^3/uL (150-450); RED BLOOD COUNT 3.86 10^6/uL (4.30-6.10); WHITE BLOOD COUNT 13.9 10^3/uL (4.0-10.0)
[2023-04-30 06:08] LABS: BLOOD UREA NITROGEN 16 MG/DL (9-23); CARBON DIOXIDE LEVEL 26 MMOL/L (20-31); CHLORIDE LEVEL 105 MMOL/L (98-107); CREATININE FOR GFR 0.56 MG/DL (0.70-1.30); GLOMERULAR FILTRATION RATE > 60.0 (>42); GLUCOSE, FASTING 131 MG/DL (74-106); MAGNESIUM LEVEL 1.6 MG/DL (1.8-2.4); PHOSPHORUS LEVEL 3.7 MG/DL (2.4-5.1); POTASSIUM SERUM 4.1 MMOL/L (3.5-5.1); SODIUM LEVEL 139 MMOL/L (136-145)
[2023-04-30] MEDS: INSULIN LISPRO (NovoLOG) PER UNIT SC SCH ×2 (08:32→12:00)
[2023-04-30] MEDS: SENOKOT S TAB PO SCH (08:32)
[2023-04-30] MEDS: DOXYCYCLINE HYCLATE 100MG TABLET PO SCH (08:32)
[2023-04-30] MEDS ORDERED: MAGNESIUM OXIDE 400MG TAB (MAG-OX) PO SCH (09:00)
[2023-04-30] MEDS ORDERED: ENOXAPARIN 40MG/0.4ML SYRINGE (J1650 PER 10MG) SC SCH (09:00)
[2023-04-30] MEDS ORDERED: VANCOMYCIN HCL 1,000 MG, VIAL MATE ADAPTER 1 EACH in D5W 250 ML IV SCH (10:40)
[2023-04-30] MEDS ORDERED: VANCOMYCIN HCL 1,000 MG, VIAL MATE ADAPTER 1 EACH in D5W 250 ML IV ONE ×2 (11:00→12:00)
[2023-04-30] MEDS ORDERED: ISOVUE-370 76% 100ML VIAL As Ordered ONE (12:35)
[2023-04-30] MEDS ORDERED: cefTRIAXone SOD 2 GM in D5W MINI-BAG PLUS 50 ML IV SCH (13:00)
[2023-04-30 14:00] VITALS: BP 156/90; TEMP 98.1; O2SAT 95
[2023-04-30] MEDS ORDERED: VANCOMYCIN HCL 750 MG, VIAL MATE ADAPTER 1 EACH in D5W 250 ML IV SCH (20:00)
[2023-04-30] MEDS ORDERED: VANCOMYCIN HCL 500 MG in D5W MINI-BAG PLUS 100 ML IV SCH (21:00)
[2023-05-01 12:08] LABS: ANTINUCLEAR ANTIBODIES DIRECT Negative (Negative)
== END 2023-04-30 16:47 | disposition short-term general hospital (02) ==
LOC: EDBD 11:18 → M ED 11:18 → CANBEDREQ 13:53 → M ED INP 15:06 → M MSPAV 16:20
PROVIDERS: ADMIT Internal Medicine; ATTEND Internal Medicine
DX: M51.87 Other intervertebral disc disorders, lumbosacral region (principal); M50.21 Other cervical disc displacement, high cervical region; G89.29 Other chronic pain; R53.1 Weakness; R41.82 Altered mental status, unspecified; L97.519 Non-pressure chronic ulcer of other part of right foot with unspecified severity; B95.62 Methicillin resistant Staphylococcus aureus infection as the cause of diseases classified elsewhere; M77.31 Calcaneal spur, right foot; D72.829 Elevated white blood cell count, unspecified; E11.42 Type 2 diabetes mellitus with diabetic polyneuropathy; E66.9 Obesity, unspecified; Z68.28 Body mass index [BMI] 28.0-28.9, adult; I10 Essential (primary) hypertension; N40.0 Benign prostatic hyperplasia without lower urinary tract symptoms; E78.5 Hyperlipidemia, unspecified; Z86.010 Personal history of colon polyps; Z98.41 Cataract extraction status, right eye; Z98.42 Cataract extraction status, left eye; Z88.5 Allergy status to narcotic agent; Z79.899 Other long term (current) drug therapy; Z79.4 Long term (current) use of insulin; Z79.84 Long term (current) use of oral hypoglycemic drugs
CPT/HCPCS: 36415; 70470; 72141; 72148; 80048; 80076; 82550; 82553; 83605; 83735; 84100; 84443; 84484; 85025; 85027; 85610; 85652; 85730; 86038; 86140; 86431; 87040; 87077; 87186; 87631; 93005; 96365; 96372; 96375; 96376; 97161; 97165; 97530; 97535; 99285; G0378; J0696; J1100; J1650; J1815; J3370; Q9967